=== PATIENT | male | born 1955 | race Caucasian/White ===

== ENCOUNTER → 2017-01-02 | Outpatient (CLI) | payer BC ==
[~2017-01-02] MED LIST: MULT-506 PO
--- NOTE | 2017-01-02 09:55 | DIAGNOSTIC IMAGING REPORT ---
RIGHT KNEE 1 OR 2 VIEWS ROUTINE CLINICAL HISTORY: Right knee pain COMPARISON: None. DISCUSSION: No acute fractures are visualized. There are osteoarthritic changes present with medial joint compartment narrowing. There are tiny dorsal patellar spurs. There is no evidence for soft tissue swelling. IMPRESSION: Moderate osteoarthritic change. No acute fractures. Electronically signed by: Manav Bill M.D. 01/02/2017 9:53 AM Dictated Date/Time: 01/02/2017 9:53 AM
--- NOTE | 2017-01-02 09:56 | DIAGNOSTIC IMAGING REPORT ---
LEFT KNEE 1 OR 2 VIEWS ROUTINE CLINICAL HISTORY: Left knee pain COMPARISON: None. DISCUSSION: There are minor osteoarthritic changes present. There is a small dorsal patellar spur. No acute fractures are visualized. There are no erosive or destructive changes. There is a small bone island within the proximal tibia. There is no evidence for soft tissue swelling. IMPRESSION: Mild degenerative change. No evidence of fracture. Electronically signed by: Manav Bill M.D. 01/02/2017 9:54 AM Dictated Date/Time: 01/02/2017 9:54 AM
--- NOTE | 2017-01-02 10:00 | DIAGNOSTIC IMAGING REPORT ---
SINGLE VIEW PELVIS; 2 VIEWS RIGHT HIP; 2 VIEWS LEFT HIP CLINICAL HISTORY: Bilateral hip pain. FINDINGS: An AP pelvic radiograph with AP and frog-leg views of the right hip as well as AP and frog-leg views of the left hip are obtained. No prior studies are available for comparison at the time of dictation. The skeletal structures appear osteopenic. There is no evidence of fracture. Mild arthritic change and joint space narrowing is seen in both hips. Small enthesophytes arise from the anterior superior iliac spine bilaterally. The sacroiliac joints are normal in appearance. Lumbosacral spondylosis is partially imaged. The overlying soft tissues tissues are within normal limits. There is a nonobstructed abdominal bowel gas pattern. Numerous pelvic phleboliths are identified. IMPRESSION: Mild degenerative change is present in the hips. No acute bony abnormality is seen. Electronically signed by: Haseeb Bearden M.D. 01/02/2017 9:59 AM Dictated Date/Time: 01/02/2017 9:57 AM
== END | disposition home or self-care (01) ==
LOC: C.RAD 09:16
PROVIDERS: ATTEND Physician Assistant
DX: M25.561 Pain in right knee (principal); M25.562 Pain in left knee; M25.551 Pain in right hip; M25.552 Pain in left hip

== ENCOUNTER → 2017-01-02 | Outpatient (CLI) | payer BC ==
[2017-01-02 12:54] LABS: BLOOD UREA NITROGEN 16 mg/dl (7-18); BUN/CREATININE RATIO 15.5 (10-20); CALCIUM 9.2 mg/dl (8.5-10.1); CARBON DIOXIDE 28 mmol/L (21-32); CHLORIDE 107 mmol/L (98-107); CHOLESTEROL 196 mg/dl (0-200); GLUCOSE 97 mg/dl (70-99); POTASSIUM 3.6 mmol/L (3.5-5.1); SODIUM 142 mmol/L (136-145)
[2017-01-02 12:58] LABS: CHOLESTEROL/HDL RATIO 5.2; HDL CHOLESTEROL 38 mg/dl; LDL CHOLESTEROL CALCULATED 103 mg/dl; TRIGLYCERIDES 277 mg/dl (0-150); VERY LOW DENSITY LIPOPROT CALC 55 mg/dl
[2017-01-02 13:28] LABS: ESTIMATED AVERAGE GLUCOSE 131 mg/dl; HA1C FLAG Normal (Normal)
== END | disposition home or self-care (01) ==
LOC: C.LABPBG 07:45
PROVIDERS: ATTEND Physician Assistant
DX: I10 Essential (primary) hypertension (principal)

== ENCOUNTER → 2017-07-15 | Outpatient (CLI) | payer BC ==
[2017-07-15 12:24] LABS: BLOOD UREA NITROGEN 28 mg/dl (7-18); BUN/CREATININE RATIO 19.7 (10-20); CALCIUM 9.9 mg/dl (8.5-10.1); CARBON DIOXIDE 22 mmol/L (21-32); CHLORIDE 105 mmol/L (98-107); CHOLESTEROL 243 mg/dl (0-200); GLUCOSE 142 mg/dl (70-99); SODIUM 137 mmol/L (136-145)
[2017-07-15 12:26] LABS: CHOLESTEROL/HDL RATIO 8.7; HDL CHOLESTEROL 28 mg/dl; TRIGLYCERIDES 478 mg/dl (0-150)
== END ==
LOC: C.LABPBG 09:40
PROVIDERS: ATTEND Physician Assistant
DX: Z00.00 Encounter for general adult medical examination without abnormal findings (principal); Z13.1 Encounter for screening for diabetes mellitus; Z11.59 Encounter for screening for other viral diseases; E78.1 Pure hyperglyceridemia

== ENCOUNTER 2022-12-08 10:34 | Observation (INO) ==
[2022-12-08] MEDS ORDERED: METOPROLOL TARTRATE 1 MG/ML VIAL IV STA ×2 (10:55→14:35)
--- NOTE | 2022-12-08 10:55 | Emergency Department Note ---
Impression & Plan SVT (supraventricular tachycardia), Chest pain, Elevated troponin ED Provider Note NAME: CHRISTINE RITTER AGE: 67 SEX: M : 1955 ARRIVES VIA: Walk-In INFORMANT: Patient ED PROVIDER(S): Tee Cordero DO CHIEF COMPLAINT: chest pain HPI: Patient is a 67-year-old male who presents to the ER for chest tightness going up to his bilateral jaw associated with some shortness of breath and feeling his heart racing. This has been going on since this past Thursday. He is getting it about 4-5 times a day if not more. Denies any belly pain, nausea, vomiting, or diarrhea. No dysuria, urgency, or frequency. No other exacerbating or remitting factors. He does not have a primary care doctor. He has not seen anybody for over 5 years. PAST MEDICAL HISTORY:See Below PAST SURGICAL HISTORY:See Below FAMILY HISTORY:See Below SOCIAL HISTORY:See Below HOME MEDICATIONS:See Below ALLERGIES:See Below VITALS:See Below PHYSICAL EXAMINATION: GENERAL: Sitting up in bed, alert, well appearing, well nourished, no distress, non-toxic EYE EXAM: normal conjunctiva. OROPHARYNX: no exudate, no erythema, lips, buccal mucosa, and tongue normal and mucous membranes are moist NECK: supple, no nuchal rigidity, no adenopathy, non-tender LUNGS: Clear to auscultation. Normal chest wall mechanics HEART: no murmurs, S1 normal and S2 normal ABDOMEN: abdomen soft, non-tender, normo-active bowel sounds, no masses, no re bound or guarding. UPPER EXTREMITIES: upper extremities are grossly normal. LOWER EXTREMITIES: No pitting edema. Calves are equal bilateral NEURO EXAM: Normal sensorium, cranial nerves II-XII grossly intact, normal speech, no gross weakness of arms, no gross weakness of legs. MEDICAL DECISION MAKING: Patient is a 67-year-old male who presents the ER for feeling his heart race associate with chest pain and bilateral neck pain. IV was established blood was obtained. Labs show no significant leukocytosis or anemia. BMP with slightly elevated calcium at 10.3. LFTs bilirubin was unremarkable. Troponin was elevated at 380. TSH and lipase were unremarkable. COVID was negative. Chest x-ray was unremarkable. EKG was consistent with SVT. He was going in and out of this on the monitor. He did break on his own. He was given IV Lopressor. This settled his rate down and stopped SVT for the time being. With the recurrent bouts of this did discuss with the hospitalist for further evaluation and management. Triage Nursing notes reviewed. Limited review of prior medical records performed Vital Signs: reviewed and remarkable for HTN and tachy Differential diagnosis: Cardiac ischemia, aortic dissection, pulmonary embolism, pneumothorax, pneumonia, pericarditis, myocarditis, esophageal rupture, GERD, cholecystitis, pancreatitis, musculoskeletal, as well as other pathologies. ER treatment provided: See below Diagnostics interpreted by me include EKG and cardiac monitoring as listed below: -Cardiac Monitoring: An order was placed for continuous cardiac monitoring. The monitor shows a rate of 160 with SVT rhythm. -ECG: SVT rate of 150 Normal axis No PVCs Septal Q waves ST depressions in V4 through V5 as well as the inferior leads QTc 464 -Laboratory studies:Interpreted by me as stated above in MDM and shown below. Imaging studies: Xrays: As interpreted by me: Chest x-ray per my read shows no focal infiltrate Per radiology suggested atelectasis versus infiltrates in the lower lobe. CTs show: none Consultation(s): Discussed with hospitalist for further evaluation treatment and management Dr. Lavell Montemayor Procedures:none Critical Care: None Past Med/Surg History Medical History HLD (hyperlipidemia) HTN (hypertension) with goal to be determined Prediabetes Surgical History No history of previous surgery Family History Other No pertinent family history Denies family history of Ovarian cancer Prostate cancer Myocardial infarction Breast cancer Colorectal cancer Social History Smoking Status: Never smoker Second Hand Exposure: No; Do You Dip or Chew Tobacco: No; Hx Alcohol Use: No Hx Substance Use: No Preferred Language: Azeri Communication Ability: Effective Visual Impairment: No Limitations Hearing Ability: Normal Stitch Cleaner Required: No Beliefs That Will Affect Care: None marital status: Current Living Situation: Spouse current occupational status: employed Other Information That Helps Us Care for You: No Feels Safe at Home: Yes Safety Concerns: Feels Safe At This Time Dental Care, Regularly: Yes Seatbelt Use: always Assistive Devices: None Allergies Allergies Allergy/AdvReac Type Severity Reaction Status Date / Time No Known Allergies Allergy Unverified 07/28/19 09:04 Home Meds Previous Rx's Medication Instructions Recorded atorvastatin 20 mg tablet 20 mg PO DAILY #90 tabs 06/01/19 lisinopril 40 mg tablet 40 mg PO DAILY #90 tabs 04/23/20 metoprolol tartrate 25 mg tablet 25 mg PO BID #180 tabs 06/06/21 Results & Data (ED) Vital Signs Vital Signs - 24 hr 12/08/22 10:38 12/08/22 11:06 12/08/22 11:15 Temperature 37.0 C Temperature Source Temporal Artery Scan Pulse Rate 152 H 86 Pulse Rate [Apical] 72 Pulse Rhythm [Apical] Regular Respiratory Rate 20 18 Respiratory Effort / Characteristics Non-Labored Non-Labored Spontaneous Respiratory Depth Normal Normal Respiratory Pattern Regular Blood Pressure 185/111 H 164/114 H Blood Pressure [Right Arm] 164/114 H Blood Pressure Mean 135 Blood Pressure Mean [Right Arm] 130 Blood Pressure Position Sitting Blood Pressure Position [Right Arm] Lying Pulse Oximetry 97 93 Oxygen Delivery Method Room Air Room Air Sepsis Recent Fever Within 48 Hours No Sepsis New/Unexplained Change in Mental Status No Sepsis Action Taken by Nursing No Action Required 12/08/22 11:15 12/08/22 11:57 12/08/22 12:24 Temperature Temperature Source Pulse Rate 72 Pulse Rate [Apical] 70 Pulse Rhythm [Apical] Regular Respiratory Rate 18 Respiratory Effort / Characteristics Non-Labored Spontaneous Respiratory Depth Normal Respiratory Pattern Regular Blood Pressure Blood Pressure [Right Arm] 146/102 H Blood Pressure Mean Blood Pressure Mean [Right Arm] 116 Blood Pressure Position Blood Pressure Position [Right Arm] Lying Pulse Oximetry 93 97 Oxygen Delivery Method Room Air Room Air Sepsis Recent Fever Within 48 Hours Sepsis New/Unexplained Change in Mental Status Sepsis Action Taken by Nursing Laboratory Data 12/08/22 10:50 12/08/22 10:50 Lab Results 12/08/22 12/08/22 12/08/22 Range/Units 10:50 10:50 10:50 WBC 7.75 (4.8-10.8) K/ul RBC 4.66 L (4.70-6.10) M/uL Hgb 14.1 (14.0-18.0) g/dl Hct 41.3 L (42.0-52.0) % MCV 88.6 (80.0-100.0) fL MCH 30.3 (25.0-34.0) pg MCHC 34.1 (32.0-36.0) g/dL RDW Std Deviation 46.5 H (36.4-46.3) fL RDW Coeff of Rachelle 14.4 (11.5-14.5) % Plt Count 260 (130-400) K/uL MPV 9.2 L (9.4-12.4) fL Immature Gran % (Auto) 0.1 % Neut % (Auto) 58.1 % Lymph % (Auto) 32.5 % [place] % (Auto) 8.1 % Eos % (Auto) 0.9 % Baso % (Auto) 0.3 % Neut # (Auto) 4.50 (1.40-6.50) K/uL Lymph # (Auto) 2.52 (1.2-3.4) K/uL [place] # (Auto) 0.63 H (0.11-0.59) K/uL Eos # (Auto) 0.07 (0-0.50) K/uL Baso # (Auto) 0.02 (0-0.2) K/uL Immature Gran # (Auto) 0.01 (0.01-0.20) K/uL Sodium 139 (136-145) mmol/L Potassium 3.6 (3.5-5.1) mmol/L Chloride 107 (98-107) mmol/L Carbon Dioxide 24 (21-32) mmol/L Anion Gap 8 (3-11) BUN 20 (6-23) mg/dl Creatinine 1.36 (0.6-1.4) mg/dl Est Cr Clr Drug Dosing 60.9 ml/min Est GFR ( Amer) 62.0 ml/min Est GFR (Non-Af Amer) 53.5 ml/min BUN/Creatinine Ratio 14.7 (10-20) Glucose 103 H (70-99(Fasting)) mg/dl Calcium 10.3 H (8.5-10.1) mg/dl Magnesium 1.9 Cancelled (1.7-2.4) mg/dl Total Bilirubin 0.5 (0.2-1.0) mg/dl AST 30 (13-39) U/L ALT 21 (7-52) U/L Alkaline Phosphatase 51 (34-104) U/L Troponin I High Sens 372.2 H* (0-20) pg/ml Total Protein 8.2 (6.0-8.3) gm/dl Albumin 4.5 (3.4-5.0) gm/dl Globulin 3.7 (2.5-4.0) gm/dl Albumin/Globulin Ratio 1.2 (0.9-2) Lipase 31 (11-82) U/L TSH (0.300-4.500) uIu/ml SARS-CoV-2, RNA, NAAT (NEGATIVE) 12/08/22 12/08/22 Range/Units 10:50 11:13 WBC (4.8-10.8) K/ul RBC (4.70-6.10) M/uL Hgb (14.0-18.0) g/dl Hct (42.0-52.0) % MCV (80.0-100.0) fL MCH (25.0-34.0) pg MCHC (32.0-36.0) g/dL RDW Std Deviation (36.4-46.3) fL RDW Coeff of Rachelle (11.5-14.5) % Plt Count (130-400) K/uL MPV (9.4-12.4) fL Immature Gran % (Auto) % Neut % (Auto) % Lymph % (Auto) % [place] % (Auto) % Eos % (Auto) % Baso % (Auto) % Neut # (Auto) (1.40-6.50) K/uL Lymph # (Auto) (1.2-3.4) K/uL [place] # (Auto) (0.11-0.59) K/uL Eos # (Auto) (0-0.50) K/uL Baso # (Auto) (0-0.2) K/uL Immature Gran # (Auto) (0.01-0.20) K/uL Sodium (136-145) mmol/L Potassium (3.5-5.1) mmol/L Chloride (98-107) mmol/L Carbon Dioxide (21-32) mmol/L Anion Gap (3-11) BUN (6-23) mg/dl Creatinine (0.6-1.4) mg/dl Est Cr Clr Drug Dosing ml/min Est GFR ( Amer) ml/min Est GFR (Non-Af Amer) ml/min BUN/Creatinine Ratio (10-20) Glucose (70-99(Fasting)) mg/dl Calcium (8.5-10.1) mg/dl Magnesium (1.7-2.4) mg/dl Total Bilirubin (0.2-1.0) mg/dl AST (13-39) U/L ALT (7-52) U/L Alkaline Phosphatase (34-104) U/L Troponin I High Sens (0-20) pg/ml Total Protein (6.0-8.3) gm/dl Albumin (3.4-5.0) gm/dl Globulin (2.5-4.0) gm/dl Albumin/Globulin Ratio (0.9-2) Lipase (11-82) U/L TSH 3.157 (0.300-4.500) uIu/ml SARS-CoV-2, RNA, NAAT NEGATIVE (NEGATIVE) Administered Medications Discontinued Medications Aspirin (Aspirin Chew 324 Mg) 324 mg PO NOW STA Stop: 12/08/22 12:33 Last Admin: 12/08/22 12:44 Dose: 324 mg Documented By: DAREN Metoprolol Tartrate (Metoprolol Tartrate 1 Mg/Ml Vial) 5 mg IV NOW STA Stop: 12/08/22 10:56 Last Admin: 12/08/22 11:06 Dose: 5 mg Documented By: DAREN Imaging Data Radiologist's Impression: Chest X-Ray 12/08/22 10:46 XR chest 1V portable CLINICAL HISTORY: Chest pain, nonspecific TECHNIQUE: Single frontal radiograph of the chest was obtained. Comparison: None available at the time of this dictation. FINDINGS: No lines and tubes are seen. Cardiomegaly is noted. Faint left lower lung airspace opacities are suggested. No evidence of pleural effusion or pneumothorax. IMPRESSION: Faint left lower lung airspace opacities are suggested which may represent atelectasis, aspiration, and/or pneumonia. If there is clinical concern, lateral radiograph or CT can be performed. ACT 112: Negative or not required by law. Electronically signed by: Juarez Corley M.D. 12/08/2022 11:05 AM Discharge Plan Visit Data Chief Complaint: Chest Pain Stated Complaint: TIGHTNESS IN CHEST, HEADACHE ED Provider: Tee Cordero Discharge Problem: SVT (supraventricular tachycardia), Chest pain, Elevated troponin Patient Disposition: Admitted As Inpatient Discharge Instructions Interventions: ED Discharge Assessment Last Done: 12/08/22 14:23
--- NOTE | 2022-12-08 11:06 | XRay Report ---
XR chest 1V portable CLINICAL HISTORY: Chest pain, nonspecific TECHNIQUE: Single frontal radiograph of the chest was obtained. Comparison: None available at the time of this dictation. FINDINGS: No lines and tubes are seen. Cardiomegaly is noted. Faint left lower lung airspace opacities are sugg ested. No evidence of pleural effusion or pneumothorax. IMPRESSION: Faint left lower lung airspace opacities are suggested which may represent atelectasis, aspiration, a nd/or pneumonia. If there is clinical concern, lateral radiograph or CT can be performed. ACT 112: Negative or not required by law. Electronically signed by: Juarez Corley M.D. 12/08/2022 11:05 AM
[2022-12-08 11:48] LABS: Basophils # (auto) 0.02 K/uL (0-0.2); Basophils % (auto) 0.3 %; Eosinophils # (auto) 0.07 K/uL (0-0.50); Eosinophils % (auto) 0.9 %; Hematocrit (blood only) 41.3 % (42.0-52.0); Hemoglobin 14.1 g/dl (14.0-18.0); Immature Granulocytes # (auto) 0.01 K/uL (0.01-0.20); Immature Granulocytes % (auto) 0.1 %; Lymphocytes # (auto) 2.52 K/uL (1.2-3.4); Lymphocytes % (auto) 32.5 %; Mean Corpuscular Hemoglobin 30.3 pg (25.0-34.0); Mean Corpuscular Hgb Conc 34.1 g/dL (32.0-36.0); Mean Corpuscular Volume 88.6 fL (80.0-100.0); Mean Platelet Volume 9.2 fL (9.4-12.4); Monocytes # (auto) 0.63 K/uL (0.11-0.59); Monocytes % (auto) 8.1 %; Neutrophils % (auto) 58.1 %; Platelet Count 260 K/uL (130-400); RDW Coefficient of Variation 14.4 % (11.5-14.5); RDW Standard Deviation 46.5 fL (36.4-46.3); Red Blood Count 4.66 M/uL (4.70-6.10); White Blood Count 7.75 K/ul (4.8-10.8)
[2022-12-08 11:54] LABS: Albumin Globulin Ratio 1.2 (0.9-2); Albumin Level 4.5 gm/dl (3.4-5.0); BUN Creatinine Ratio 14.7 (10-20); Bilirubin,Total 0.5 mg/dl (0.2-1.0); Calcium 10.3 mg/dl (8.5-10.1); Creatinine Clr Calc Pharmacy 60.9 ml/min; Est GFR (Non-African American) 53.5 ml/min; Globulin 3.7 gm/dl (2.5-4.0); Potassium 3.6 mmol/L (3.5-5.1); Total Protein 8.2 gm/dl (6.0-8.3)
[2022-12-08 12:20] LABS: Troponin I High Sensitivity 372.2 pg/ml (0-20)
--- NOTE | 2022-12-08 12:27 | History & Physical Report ---
Date of Service December 08, 2022 Assessment & Plan (1) Chest pain: Plan: recurrent episodes of CP/radiation to jaw/heart racing/SOB since last Thursday, 4- 5x daily. Currently chest pain free and in NSR on monitor EKG w/ SVT on admit, spontaneously converted, given metoporolol 5mg IV Troponin 372, asa 324mg x 1 now in ER ordered, will continue ASA 81mg daily for AM Obs telemetry Troponin x 2 Check Mag/TSH given SVT ECHO to be completed given troponin elevation (?overload from SVT, check BNP) Will continue metoprolol 25mg BID for now, BP elevated Cards consulted Nitro prn Supplemental O2 as needed Pain control/antiemetics prn Labs in AM along with A1c and lipid panel given prior on statin and pre-DM w/ A1c 6.5 (glucose 103 today) (2) SVT (supraventricular tachycardia): Plan: on admit, now in NSR metoprolol check mag monitor on telemetry (3) Dyslipidemia: Plan: porior on atorvastatin 20mg check lipid panel in AM, dose TBD pending above (4) Hypertension: Plan: previously on lisinopril 40mg, metoprolol 25m bid BP elevated 146/102, additional dose metoprolol IV x 1 NOW, monitor response Orders for metoprolol 25mg BID to begin tonight, will hold off lisinopril until re-eval kidney function given Cr 1.36 on admit Can make hydralazine available prn (5) Prediabetes: Plan: prior A1c 6.5, repeat for AM Will check BSG AC/HS, add on ISS pending repeat values Plan obs tele, trend trop/check ECHO, cards consulted will need set back up with Dr Ross for PCP at discharge given hasn't been seen since 2019 History of Present Illness Chief Complaint: chest pain Primary Care Provider: Lili Ross, 67yo male with PMHx HTn, HLD, pre-DM presented with chest tightness and radiation to b/l jaw with shortness of breath and heart racing sensation since this past Thursday, about 4-5 times a day (if not possibly more). Prior home meds atorvastatin 20mg, lisinopril 40mg, metoprolol tartrate 25mg BID but do not see any recent fill history. Reportedly not seen primary care almost 5 years. Patient reports since about last Thursday he has been having at least 4-5 episodes daily of racing sensation in his chest with chest pain radiation to jaws and associated lightheaded/dizziness sensation which lasts a couple of seconds and then goes away. Nothing brought it on or made worse/better. Had been checking BP/pulse w/ home machine and reports HRs up to 150-160s at times. No recent illness/cough/sputum production or fevers at home. He reports he used to be on medication for blood pressure but just hasn't been to primary care. Good experience w/ Dr Ross in the past and would like to f/u with her at d/c. Father from brain aneurysm/stroke in his 60/70s, mother in her 90s. No abdominal pain, nausea or vomiting. No lower back pain. Does have some edema in LE but calves non-tender to palpation. No pleuritic pain reported. 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 No drinking history. In ER found to be in SVT w/ rates in 150bpm, spontaneously converted and was given metoprolol 5mg IV x 1. ST/T wave abn, consider inferior ischemia. CXR w/ faint left lower lung airspace opacities are suggested which may represent atelectasis, aspiration, and/or pneumonia. WBC, no left shift. COVID 19 testing negative. Na/K within normal limits. Calcium 10.3. Troponin elevated to 372.2 and will trend. NOT currently having any chest discomfort. Allergies Allergy/AdvReac Type Severity Reaction Status Date / Time No Known Allergies Allergy Unverified 07/28/19 09:04 Past Med/Surg History Medical History HLD (hyperlipidemia) HTN (hypertension) with goal to be determined Prediabetes Surgical History No history of previous surgery Family History Other No pertinent family history Denies family history of Ovarian cancer Prostate cancer Myocardial infarction Breast cancer Colorectal cancer Social History Smoking Status: Never smoker Second Hand Exposure: No; Do You Dip or Chew Tobacco: No; Hx Alcohol Use: No Hx Substance Use: No Preferred Language: Icelandic Communication Ability: Effective Visual Impairment: No Limitations Hearing Ability: Normal 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 Beliefs That Will Affect Care: None marital status: Current Living Situation: Spouse current occupational status: employed Other Information That Helps Us Care for You: No Feels Safe at Home: Yes Safety Concerns: Feels Safe At This Time Dental Care, Regularly: Yes Seatbelt Use: always Assistive Devices: None Review of Systems Review of Systems: All systems reviewed & are unremarkable except as noted in HPI & below Physical Exam Physical Exam: General: WD/WN obese male sitting up in bed, at bedside, NAD and getting his aspirin currently HEENT: head normocephalic, atraumatic, mmm, trachea midline without deviation Resp: CTA, bibasilar crackles, no wheezing, on room air CV: regular rate/rhythm (rates 70-80s), +murmur, 1+ b/l LE edema, pulses palpable, calves nontender to palpation GI: +BS, obese, slightly distended but soft/NT : no elmore MSK/Neuro: no focal deficit, no slurred speech, CN intact grossly Psych: AOx3, pleasant and cooperative Skin: warm, dry Results & Data Results & Data ([facility]) Vital Signs (Past 12 Hours) Vital Signs Temp Pulse Pulse Resp BP BP Pulse Ox 12/08/22 11:57 70 18 146/102 H 97 12/08/22 11:15 93 12/08/22 11:15 72 18 164/114 H 93 12/08/22 11:06 86 164/114 H 12/08/22 10:38 37.0 C 152 H 20 185/111 H 97 O2 Del Method 12/08/22 11:57 Room Air 12/08/22 11:15 Room Air 12/08/22 11:15 Room Air 12/08/22 11:06 12/08/22 10:38 Room Air Laboratory Results 12/08/22 12/08/22 12/08/22 Range/Units 11:13 10:50 10:50 WBC 7.75 (4.8-10.8) K/ul RBC 4.66 L (4.70-6.10) M/uL Hgb 14.1 (14.0-18.0) g/dl Hct 41.3 L (42.0-52.0) % MCV 88.6 (80.0-100.0) fL MCH 30.3 (25.0-34.0) pg MCHC 34.1 (32.0-36.0) g/dL RDW Std Deviation 46.5 H (36.4-46.3) fL RDW Coeff of Rachelle 14.4 (11.5-14.5) % Plt Count 260 (130-400) K/uL MPV 9.2 L (9.4-12.4) fL Immature Gran % (Auto) 0.1 % Neut % (Auto) 58.1 % Lymph % (Auto) 32.5 % [place] % (Auto) 8.1 % Eos % (Auto) 0.9 % Baso % (Auto) 0.3 % Neut # (Auto) 4.50 (1.40-6.50) K/uL Lymph # (Auto) 2.52 (1.2-3.4) K/uL [place] # (Auto) 0.63 H (0.11-0.59) K/uL Eos # (Auto) 0.07 (0-0.50) K/uL Baso # (Auto) 0.02 (0-0.2) K/uL Immature Gran # (Auto) 0.01 (0.01-0.20) K/uL Sodium 139 (136-145) mmol/L Potassium 3.6 (3.5-5.1) mmol/L Chloride 107 (98-107) mmol/L Carbon Dioxide 24 (21-32) mmol/L Anion Gap 8 (3-11) BUN 20 (6-23) mg/dl Creatinine 1.36 (0.6-1.4) mg/dl Est Cr Clr Drug Dosing 60.9 ml/min Est GFR ( Amer) 62.0 ml/min Est GFR (Non-Af Amer) 53.5 ml/min BUN/Creatinine Ratio 14.7 (10-20) Glucose 103 H (70-99(Fasting)) mg/dl Calcium 10.3 H (8.5-10.1) mg/dl Total Bilirubin 0.5 (0.2-1.0) mg/dl AST 30 (13-39) U/L ALT 21 (7-52) U/L Alkaline Phosphatase 51 (34-104) U/L Troponin I High Sens 372.2 H* (0-20) pg/ml Total Protein 8.2 (6.0-8.3) gm/dl Albumin 4.5 (3.4-5.0) gm/dl Globulin 3.7 (2.5-4.0) gm/dl Albumin/Globulin Ratio 1.2 (0.9-2) Lipase 31 (11-82) U/L SARS-CoV-2, RNA, NAAT NEGATIVE (NEGATIVE) Diagnostic Findings Chest X-Ray 12/08/22 10:46 XR chest 1V portable CLINICAL HISTORY: Chest pain, nonspecific TECHNIQUE: Single frontal radiograph of the chest was obtained. Comparison: None available at the time of this dictation. FINDINGS: No lines and tubes are seen. Cardiomegaly is noted. Faint left lower lung airspace opacities are suggested. No evidence of pleural effusion or pneumothorax. IMPRESSION: Faint left lower lung airspace opacities are suggested which may represent atelectasis, aspiration, and/or pneumonia. If there is clinical concern, lateral radiograph or CT can be performed. ACT 112: Negative or not required by law. Electronically signed by: Juarez Corley M.D. 12/08/2022 11:05 AM Supervising Physician Co-Signing Physician Notes I personally saw and examined the patient. I verified all morillo points and agree with Catarina Roach PA-C with the following exceptions and/or additions: 67-year-old male presents to the ER with chest pain and palpitations. He denies any pain outside of these palpitations. No recent decrease in exercise tolerance. No associated shortness of breath, diaphoresis, nausea. No current chest pain when seen while in normal sinus rhythm. O/E Alert and orientated x3, HS RRR, no murmurs, Chest CTAB, Abdo SNT A/P SVT - Currently in NSR. Continue metoprolol tartrate 25mg PO BID. Consult cardiology Elevated troponin - suspect some degree of underlying CAD but ACS not suspected as resolved with termination of SVT and no chest pain outside of these episodes PG Care Time/CCT Total # of Minutes Spent Total Time Spent with Patient: Total time spent is greater than 50% in coordination of care (as documented) at patient's floor/unit and/or counseling patient: Coding Level of Care Code 14516 INT INP/OBS CARE 375MIN Diagnoses Chest pain R07.9 SVT (supraventricular tachycardia) I47.1 Dyslipidemia E78.5 Hypertension I10 Prediabetes R73.03
[2022-12-08] MEDS ORDERED: ASPIRIN CHEW 324 MG PO STA (12:32)
--- NOTE | 2022-12-08 12:49 | Electrocardiogram Report ---
Test Reason : Blood Pressure : / mmHG Vent. Rate : 150 BPM Atrial Rate : 150 BPM P-R Int : 000 ms QRS Dur : 098 ms QT Int : 294 ms P-R-T Axes : 000 019 262 degrees QTc Int : 464 ms Supraventricular tachycardia Septal infarct , age undetermined Abnormal ECG No previous ECGs available Confirmed by Rene Day ([id number]) on 12/08/2022 12:49:10 PM Referred By: Confirmed By:Rene Day
[2022-12-08 13:15] LABS: Magnesium 1.9 mg/dl (1.7-2.4)
[2022-12-08] MEDS ORDERED: hydrALAZINE HCL 20 MG/ML VIAL IV PRN (14:35)
[2022-12-08] MEDS ORDERED: NITROGLYCERIN SL 0.4 MG/TAB TAB SL PRN (14:35)
[2022-12-08] MEDS ORDERED: ACETAMINOPHEN 325 MG TAB PO PRN (14:35)
[2022-12-08] MEDS ORDERED: ONDANSETRON INJ 2 MG/ML 2 ML VIAL IV PRN (14:35)
[2022-12-08] MEDS ORDERED: MoRPHine SULFATE 2 MG/ML CARP IV PRN (14:35)
--- NOTE | 2022-12-08 15:01 | Cardiology Consultation ---
Date of Consultation December 08, 2022 Assessment & Plan (1) SVT (supraventricular tachycardia): -suspect he has asymptomatic paroxysmal SVT. -curious that this has never been noted previously in this patient. -consider increasing metoprolol tartrate. -will discuss with electrophysiology team. (2) Elevated troponin: -suspect this is related to his paroxysmal SVT in the face of left ventricular hypertrophy. -however, his description of chest discomfort should be investigated further. -would follow serial troponin levels. -will decide on further testing tomorrow. (3) Hypertension: -as above, may be reasonable to increase metoprolol tartrate. History of Present Illness Attending Physician: Lavell Montemayor MD History of Present Illness Mr. Bridges a 67-year-old male admitted earlier today with intermittent chest pain, shortness of breath, and palpitations. This consultation was ordered to assist in his cardiac management. The patient was in his usual state of health until last or Thursday when he began noticing intermittent episodes of fatigue, shortness of breath, palpitations, and a squeezing-type chest discomfort radiating to the jaw. He would experience 4 or 5 episodes as described every day. The episodes typically last seconds up to minutes. He has never experienced this symptom complex previously. He is vigorous on a daily basis and has never experienced exertional angina pectoris or limiting dyspnea. He further denies syncope, presyncope, PND, orthopnea, lower extremity edema, and claudication. He has never known of a cardiac event. He has never had a cardiac catheterization. Past medical and surgical history 1. Hypertension 2. Hypercholesterolemia 3. Hyperglycemia 4. DJD Social history and lives with his No tobacco alcohol Family history Father at 70 from a brain aneurysm Mother in her 90s of old age. Review of systems A 10 review systems was undertaken and negative except for that described above. Allergies Allergy/AdvReac Type Severity Reaction Status Date / Time No Known Allergies Allergy Unverified 07/28/19 09:04 Home Medications Medication Instructions Recorded Confirmed Type atorvastatin 20 mg tablet 20 mg PO DAILY #90 tabs 06/01/19 07/28/19 Rx lisinopril 40 mg tablet 40 mg PO DAILY #90 tabs 04/23/20 Rx metoprolol tartrate 25 mg tablet 25 mg PO BID #180 tabs 06/06/21 Rx Patient History Medical History HLD (hyperlipidemia) HTN (hypertension) with goal to be determined Prediabetes Surgical History No history of previous surgery Family History Other No pertinent family history Denies family history of Ovarian cancer Prostate cancer Myocardial infarction Breast cancer Colorectal cancer Social History Smoking Status: Never smoker Second Hand Exposure: No; Hx Alcohol Use: No Hx Substance Use: No Preferred Language: Khmer Communication Ability: Effective Visual Impairment: No Limitations Hearing Ability: Normal Dock Grader Required: No marital status: Current Living Situation: Spouse current occupational status: employed Feels Safe at Home: Yes Dental Care, Regularly: Yes Seatbelt Use: always Results & Data ([facility]) Vital Signs (Past 12 Hours) Vital Signs Temp Pulse Pulse Resp BP BP Pulse Ox 12/08/22 14:40 36.7 C 68 19 161/97 H 97 12/08/22 12:24 72 12/08/22 11:57 70 18 146/102 H 97 12/08/22 11:15 93 12/08/22 11:15 72 18 164/114 H 93 12/08/22 11:06 86 164/114 H 12/08/22 10:38 37.0 C 152 H 20 185/111 H 97 O2 Del Method 12/08/22 14:40 Room Air 12/08/22 12:24 12/08/22 11:57 Room Air 12/08/22 11:15 Room Air 12/08/22 11:15 Room Air 12/08/22 11:06 12/08/22 10:38 Room Air Laboratory Results CBC notes hemoglobin 14.1, hematocrit 41.3, white count 7.75, platelet count [id number]. Electrolytes note a sodium of 139, potassium 3.6, chloride 107, bicarb 24, BUN 20, creatinine 1.36, glucose of 103. High sensitivity troponin is 372. TSH level is 3.157. Magnesium is normal at 1.9. BNP is elevated 243. Diagnostic Findings EKG notes an SVT with an old anteroseptal myocardial infarction pattern and an inferior ST T-wave abnormality. Echocardiogram notes normal left ventricular systolic function with mild LVH and mild mitral regurgitation. Chest x-ray notes cardiomegaly but no active disease. PG Care Time/CCT Total # of Minutes Spent Total Time Spent with Patient: Total time spent is greater than 50% in coordination of care (as documented) at patient's floor/unit and/or counseling patient: Coding Level of Care Code 29962 INT INP/OBS CARE 3/75MIN Diagnoses SVT (supraventricular tachycardia) I47.1 Elevated troponin R77.8 Hypertension I10
--- NOTE | 2022-12-08 16:15 | XCELERA ---
[id number]
--- NOTE | 2022-12-08 18:20 | XRay Report ---
XR chest 1V not portable HISTORY: 67 years-old Male f/u atelectasis vs opacity/pna acute cough with shortness of breath COMPARISON: 12/08/2022 TECHNIQUE: Lateral view of the chest FINDINGS: Cardiac silhouette is mildly enlarged. No pneumothorax, pleural effusion, airspace consolidation or p ulmonary edema identified. Degenerative changes of the shoulders and spine. IMPRESSION: No acute process. ACT 112: Negative or not required by law. The above report was generated using voice recognition software. It may contain grammatical, syntax o r spelling errors. Electronically signed by: Tim Walls M.D. 12/08/2022 6:19 PM
[2022-12-08] MEDS: METOPROLOL TARTRATE 25 MG TAB PO SCH (20:09)
[2022-12-08] MEDS ORDERED: Flu Vaccine-High Dose (Fluzone-HD) PF 65+ 0.7mL SYR IM ONE (21:30)
[2022-12-09 06:00] LABS: Hematocrit (blood only) 39.7 % (42.0-52.0); Hemoglobin 13.9 g/dl (14.0-18.0); Mean Corpuscular Hemoglobin 30.4 pg (25.0-34.0); Mean Corpuscular Volume 86.9 fL (80.0-100.0); Platelet Count 243 K/uL (130-400); RDW Coefficient of Variation 14.3 % (11.5-14.5); RDW Standard Deviation 45.1 fL (36.4-46.3); Red Blood Count 4.57 M/uL (4.70-6.10); White Blood Count 7.09 K/ul (4.8-10.8)
[2022-12-09 06:17] LABS: Albumin Globulin Ratio 1.2 (0.9-2); Albumin Level 4.2 gm/dl (3.4-5.0); BUN Creatinine Ratio 16.7 (10-20); Bilirubin,Total 0.6 mg/dl (0.2-1.0); Calcium 9.3 mg/dl (8.5-10.1); Chol HDL Ratio 9.5 (0-5); Creatinine Clr Calc Pharmacy 61.2 ml/min; Est GFR (African American) 64.2 ml/min; Est GFR (Non-African American) 55.4 ml/min; Globulin 3.4 gm/dl (2.5-4.0); Magnesium 1.9 mg/dl (1.7-2.4); Potassium 3.7 mmol/L (3.5-5.1); Total Protein 7.6 gm/dl (6.0-8.3)
[2022-12-09 06:44] LABS: Vitamin B12 782 pg/ml (180-914)
[2022-12-09 06:47] LABS: Vitamin D, 25 Hydrox 85.7 ng/ml (30-100)
--- NOTE | 2022-12-09 07:42 | Hospitalist Progress Note ---
Date of Service December 09, 2022 Assessment & Plan (1) Chest pain: Plan: recurrent episodes of CP/radiation to jaw/heart racing/SOB since last Thursday, 4- 5x daily. ECHO w/ normal LV systolic function. No regional wma. Mild cLVH. EF 55-60% Troponin 372.2 on admit --> 720--> 863--> 605. Demand ischemia from elevated HR/SVT however would have suspected trending down sooner given no further occurrence of SVT/AVNRT as below Remains NSR on monitor since initiation of metoprolol and will continue ASA 81mg daily added and continued for now Patient w/ rising trop despite no further occupance of elevated HR. Did drop to 604 today from 800s -- BPs elevated but not symptomatic from such. Started lisinopril 10mg daily for BP, hydralazine available prn Do suspect has degree of underlying CAD and discussions this morning w/ Dr Sierra (chest pain w/ elevated rates and elevated lipid panel w/ symptoms likely some degree suspected) and Dr Day to see about undergoing cardiac catheterization vs dobutamine stress--> planning on cath NPO since midnight +NS@80cc/hr in meantime Needing statin therapy given lipid panel -- started atorvastatin 40mg and can increased based on additional testing. A1c pre-DM, counseling had and may benefit from adding daily metformin 500mg for risk, again can see about cath results/aggressiveness Further recs per results of cath Also benefit from ablation for below Monitor labs on repeat/continue monitoring on telemetry (2) SVT (supraventricular tachycardia): Plan: on admit, now in NSR -- discussed w/ Dr Sierra and possible AVNRT amendable to ablation but will need to have discussion w/ Dr Cervantes who could potentiall do on . No recurrence since being placed on metoprolol and continues on 25mg BID for now Per discussion w/ Dr Sierra this morning, possible AVNRT and benefit from EP study w/ Dr Cervantes potentially . Cath as above first for suspected underlying CAD Continues on telemetry (3) Dyslipidemia: Plan: prior on atorvastatin 20mg --> placed on lipitor 40mg for now given lipid panel w/ TRG 325/Chol 276, LDL 182, HDL 29 Cath as above (4) Hypertension: Plan: previously on lisinopril 40mg, metoprolol 25m bid Metoprolol as above Added lisinopril 10mg for this morning for BP 148/90 and monitor response -- likely needing increased dosing but will monitor as had been off for some time Hydralazine available prn (5) Prediabetes: Plan: prior A1c 6.5 --> repeat 6.1 Counseled patient/weight loss -- await cath results as above. Consider low dose metformin at d/c for risk prevention BSG AC/HS checks acceptable, no need for inuslin at this time Plan NPO for cath w/ Dr Desai possible need for EP study/ablation w/ Dr Cervantes on -- continued discussions Admission and Anticipated Discharge Date Admission Date: December 08, 2022 Supervising Physician Co-Signing Physician Notes PA Supervision Note: I personally saw and examined the patient. I verified all morillo points and agree with TACO Roach with the following exceptions and/or additions: see discharge summary Subjective eval this morning, discussion undertaken w/ Dr Sierra for his "SVT" on admit, possible AVNRT and may be amenable to ablation but Dr Cervantes possibly able to perform on . Denies any recurrence of symptoms. BPs elevated yesterday, improved in evening and again elevated this morning. Just got dose of lisinopril. He is hungry. Discussed continued NPO for possible cardiac cath rather than dobutamine stress but waiting to hear back from Dr Day first. No fever/chills, chest pain, shortness of breath, abdominal pain, n/v. Questions/concerns addressed at this time. Physical Exam Physical Exam: General: WD/WN obese male sitting up in bed, at bedside, NAD and getting his aspirin currently HEENT: head normocephalic, atraumatic, mmm, trachea midline without deviation Resp: CTA, bibasilar crackles, no wheezing, on room air CV: regular rate/rhythm (rates 70-80s), +murmur, 1+ b/l LE edema, pulses palpable, calves nontender to palpation GI: +BS, obese, slightly distended but soft/NT : no elmore MSK/Neuro: no focal deficit, no slurred speech, CN intact grossly Psych: AOx3, pleasant and cooperative Skin: warm, dry Results & Data Results & Data ([facility]) Vital Signs (Past 12 Hours) Vital Signs Temp Pulse Pulse Resp BP Pulse Ox O2 Del Method 12/09/22 07:34 37.0 C 59 L 19 148/90 H 97 Room Air 12/09/22 06:21 64 12/09/22 04:12 68 19 121/82 94 Room Air 12/09/22 00:16 69 12/08/22 23:00 66 18 126/88 95 Room Air 12/08/22 20:00 37.2 C 89 18 144/100 H 99 Room Air Laboratory Results 12/09/22 12/09/22 12/09/22 Range/Units 07:11 05:42 05:42 WBC 7.09 (4.8-10.8) K/ul RBC 4.57 L (4.70-6.10) M/uL Hgb 13.9 L (14.0-18.0) g/dl Hct 39.7 L (42.0-52.0) % MCV 86.9 (80.0-100.0) fL MCH 30.4 (25.0-34.0) pg MCHC 35.0 (32.0-36.0) g/dL RDW Std Deviation 45.1 (36.4-46.3) fL RDW Coeff of Rachelle 14.3 (11.5-14.5) % Plt Count 243 (130-400) K/uL MPV 9.0 L (9.4-12.4) fL Immature Gran % (Auto) % Neut % (Auto) % Lymph % (Auto) % [place] % (Auto) % Eos % (Auto) % Baso % (Auto) % Neut # (Auto) (1.40-6.50) K/uL Lymph # (Auto) (1.2-3.4) K/uL [place] # (Auto) (0.11-0.59) K/uL Eos # (Auto) (0-0.50) K/uL Baso # (Auto) (0-0.2) K/uL Immature Gran # (Auto) (0.01-0.20) K/uL Sodium (136-145) mmol/L Potassium (3.5-5.1) mmol/L Chloride (98-107) mmol/L Carbon Dioxide (21-32) mmol/L Anion Gap (3-11) BUN (6-23) mg/dl Creatinine (0.6-1.4) mg/dl Est Cr Clr Drug Dosing ml/min Est GFR ( Amer) ml/min Est GFR (Non-Af Amer) ml/min BUN/Creatinine Ratio (10-20) Glucose (70-99(Fasting)) mg/dl POC Glucose 94 (70-99) mg/dl Estimat Average Glucose Hemoglobin A1c Calcium (8.5-10.1) mg/dl Magnesium (1.7-2.4) mg/dl Iron (35-175) mcg/dl TIBC (250-450) mcg/dl Unsaturated IBC (155-355) mcg/dl Transferrin % Sat (20-50) % Ferritin (8-388) ng/ml Total Bilirubin (0.2-1.0) mg/dl AST (13-39) U/L ALT (7-52) U/L Alkaline Phosphatase (34-104) U/L Troponin I High Sens (0-20) pg/ml B-Natriuretic Peptide (0-100) pg/ml Total Protein (6.0-8.3) gm/dl Albumin (3.4-5.0) gm/dl Globulin (2.5-4.0) gm/dl Albumin/Globulin Ratio (0.9-2) Triglycerides (0-150) mg/dl Cholesterol (0-200) mg/dl LDL Cholesterol, Calc mg/dl VLDL Cholesterol, Calc (0-30) mg/dl HDL Cholesterol mg/dl Cholesterol/HDL Ratio (0-5) Lipase (11-82) U/L Vitamin B12 782 (180-914) pg/ml 25-OH Vitamin D Total 85.7 (30-100) ng/ml Folate > 22.30 (>5.38) ng/ml TSH (0.300-4.500) uIu/ml SARS-CoV-2, RNA, NAAT (NEGATIVE) 12/09/22 12/09/22 12/08/22 Range/Units 05:42 05:42 22:34 WBC (4.8-10.8) K/ul RBC (4.70-6.10) M/uL Hgb (14.0-18.0) g/dl Hct (42.0-52.0) % MCV (80.0-100.0) fL MCH (25.0-34.0) pg MCHC (32.0-36.0) g/dL RDW Std Deviation (36.4-46.3) fL RDW Coeff of Rachelle (11.5-14.5) % Plt Count (130-400) K/uL MPV (9.4-12.4) fL Immature Gran % (Auto) % Neut % (Auto) % Lymph % (Auto) % [place] % (Auto) % Eos % (Auto) % Baso % (Auto) % Neut # (Auto) (1.40-6.50) K/uL Lymph # (Auto) (1.2-3.4) K/uL [place] # (Auto) (0.11-0.59) K/uL Eos # (Auto) (0-0.50) K/uL Baso # (Auto) (0-0.2) K/uL Immature Gran # (Auto) (0.01-0.20) K/uL Sodium 137 (136-145) mmol/L Potassium 3.7 (3.5-5.1) mmol/L Chloride 107 (98-107) mmol/L Carbon Dioxide 23 (21-32) mmol/L Anion Gap 7 (3-11) BUN 22 (6-23) mg/dl Creatinine 1.32 (0.6-1.4) mg/dl Est Cr Clr Drug Dosing 61.2 ml/min Est GFR ( Amer) 64.2 ml/min Est GFR (Non-Af Amer) 55.4 ml/min BUN/Creatinine Ratio 16.7 (10-20) Glucose 99 (70-99(Fasting)) mg/dl POC Glucose (70-99) mg/dl Estimat Average Glucose Pending Hemoglobin A1c Pending Calcium 9.3 (8.5-10.1) mg/dl Magnesium 1.9 (1.7-2.4) mg/dl Iron (35-175) mcg/dl TIBC (250-450) mcg/dl Unsaturated IBC (155-355) mcg/dl Transferrin % Sat (20-50) % Ferritin (8-388) ng/ml Total Bilirubin 0.6 (0.2-1.0) mg/dl AST 26 (13-39) U/L ALT 18 (7-52) U/L Alkaline Phosphatase 47 (34-104) U/L Troponin I High Sens 863.8 H* (0-20) pg/ml B-Natriuretic Peptide (0-100) pg/ml Total Protein 7.6 (6.0-8.3) gm/dl Albumin 4.2 (3.4-5.0) gm/dl Globulin 3.4 (2.5-4.0) gm/dl Albumin/Globulin Ratio 1.2 (0.9-2) Triglycerides 325 H (0-150) mg/dl Cholesterol 276 H (0-200) mg/dl LDL Cholesterol, Calc 182 mg/dl VLDL Cholesterol, Calc 65 H (0-30) mg/dl HDL Cholesterol 29 mg/dl Cholesterol/HDL Ratio 9.5 H (0-5) Lipase (11-82) U/L Vitamin B12 (180-914) pg/ml 25-OH Vitamin D Total (30-100) ng/ml Folate (>5.38) ng/ml TSH (0.300-4.500) uIu/ml SARS-CoV-2, RNA, NAAT (NEGATIVE) 12/08/22 12/08/22 12/08/22 Range/Units 20:26 17:00 13:13 WBC (4.8-10.8) K/ul RBC (4.70-6.10) M/uL Hgb (14.0-18.0) g/dl Hct (42.0-52.0) % MCV (80.0-100.0) fL MCH (25.0-34.0) pg MCHC (32.0-36.0) g/dL RDW Std Deviation (36.4-46.3) fL RDW Coeff of Rachelle (11.5-14.5) % Plt Count (130-400) K/uL MPV (9.4-12.4) fL Immature Gran % (Auto) % Neut % (Auto) % Lymph % (Auto) % [place] % (Auto) % Eos % (Auto) % Baso % (Auto) % Neut # (Auto) (1.40-6.50) K/uL Lymph # (Auto) (1.2-3.4) K/uL [place] # (Auto) (0.11-0.59) K/uL Eos # (Auto) (0-0.50) K/uL Baso # (Auto) (0-0.2) K/uL Immature Gran # (Auto) (0.01-0.20) K/uL Sodium (136-145) mmol/L Potassium (3.5-5.1) mmol/L Chloride (98-107) mmol/L Carbon Dioxide (21-32) mmol/L Anion Gap (3-11) BUN (6-23) mg/dl Creatinine (0.6-1.4) mg/dl Est Cr Clr Drug Dosing ml/min Est GFR ( Amer) ml/min Est GFR (Non-Af Amer) ml/min BUN/Creatinine Ratio (10-20) Glucose (70-99(Fasting)) mg/dl POC Glucose 103 H (70-99) mg/dl Estimat Average Glucose Hemoglobin A1c Calcium (8.5-10.1) mg/dl Magnesium (1.7-2.4) mg/dl Iron (35-175) mcg/dl TIBC (250-450) mcg/dl Unsaturated IBC (155-355) mcg/dl Transferrin % Sat (20-50) % Ferritin (8-388) ng/ml Total Bilirubin (0.2-1.0) mg/dl AST (13-39) U/L ALT (7-52) U/L Alkaline Phosphatase (34-104) U/L Troponin I High Sens 720.5 H* D (0-20) pg/ml B-Natriuretic Peptide 243 H (0-100) pg/ml Total Protein (6.0-8.3) gm/dl Albumin (3.4-5.0) gm/dl Globulin (2.5-4.0) gm/dl Albumin/Globulin Ratio (0.9-2) Triglycerides (0-150) mg/dl Cholesterol (0-200) mg/dl LDL Cholesterol, Calc mg/dl VLDL Cholesterol, Calc (0-30) mg/dl HDL Cholesterol mg/dl Cholesterol/HDL Ratio (0-5) Lipase (11-82) U/L Vitamin B12 (180-914) pg/ml 25-OH Vitamin D Total (30-100) ng/ml Folate (>5.38) ng/ml TSH (0.300-4.500) uIu/ml SARS-CoV-2, RNA, NAAT (NEGATIVE) 12/08/22 12/08/22 12/08/22 Range/Units 11:13 10:50 10:50 WBC (4.8-10.8) K/ul RBC (4.70-6.10) M/uL Hgb (14.0-18.0) g/dl Hct (42.0-52.0) % MCV (80.0-100.0) fL MCH (25.0-34.0) pg MCHC (32.0-36.0) g/dL RDW Std Deviation (36.4-46.3) fL RDW Coeff of Rachelle (11.5-14.5) % Plt Count (130-400) K/uL MPV (9.4-12.4) fL Immature Gran % (Auto) % Neut % (Auto) % Lymph % (Auto) % [place] % (Auto) % Eos % (Auto) % Baso % (Auto) % Neut # (Auto) (1.40-6.50) K/uL Lymph # (Auto) (1.2-3.4) K/uL [place] # (Auto) (0.11-0.59) K/uL Eos # (Auto) (0-0.50) K/uL Baso # (Auto) (0-0.2) K/uL Immature Gran # (Auto) (0.01-0.20) K/uL Sodium (136-145) mmol/L Potassium (3.5-5.1) mmol/L Chloride (98-107) mmol/L Carbon Dioxide (21-32) mmol/L Anion Gap (3-11) BUN (6-23) mg/dl Creatinine (0.6-1.4) mg/dl Est Cr Clr Drug Dosing ml/min Est GFR ( Amer) ml/min Est GFR (Non-Af Amer) ml/min BUN/Creatinine Ratio (10-20) Glucose (70-99(Fasting)) mg/dl POC Glucose (70-99) mg/dl Estimat Average Glucose Hemoglobin A1c Calcium (8.5-10.1) mg/dl Magnesium Cancelled (1.7-2.4) mg/dl Iron (35-175) mcg/dl TIBC (250-450) mcg/dl Unsaturated IBC (155-355) mcg/dl Transferrin % Sat (20-50) % Ferritin (8-388) ng/ml Total Bilirubin (0.2-1.0) mg/dl AST (13-39) U/L ALT (7-52) U/L Alkaline Phosphatase (34-104) U/L Troponin I High Sens (0-20) pg/ml B-Natriuretic Peptide (0-100) pg/ml Total Protein (6.0-8.3) gm/dl Albumin (3.4-5.0) gm/dl Globulin (2.5-4.0) gm/dl Albumin/Globulin Ratio (0.9-2) Triglycerides (0-150) mg/dl Cholesterol (0-200) mg/dl LDL Cholesterol, Calc mg/dl VLDL Cholesterol, Calc (0-30) mg/dl HDL Cholesterol mg/dl Cholesterol/HDL Ratio (0-5) Lipase (11-82) U/L Vitamin B12 (180-914) pg/ml 25-OH Vitamin D Total (30-100) ng/ml Folate (>5.38) ng/ml TSH 3.157 (0.300-4.500) uIu/ml SARS-CoV-2, RNA, NAAT NEGATIVE (NEGATIVE) 12/08/22 12/08/22 Range/Units 10:50 10:50 WBC 7.75 (4.8-10.8) K/ul RBC 4.66 L (4.70-6.10) M/uL Hgb 14.1 (14.0-18.0) g/dl Hct 41.3 L (42.0-52.0) % MCV 88.6 (80.0-100.0) fL MCH 30.3 (25.0-34.0) pg MCHC 34.1 (32.0-36.0) g/dL RDW Std Deviation 46.5 H (36.4-46.3) fL RDW Coeff of Rachelle 14.4 (11.5-14.5) % Plt Count 260 (130-400) K/uL MPV 9.2 L (9.4-12.4) fL Immature Gran % (Auto) 0.1 % Neut % (Auto) 58.1 % Lymph % (Auto) 32.5 % [place] % (Auto) 8.1 % Eos % (Auto) 0.9 % Baso % (Auto) 0.3 % Neut # (Auto) 4.50 (1.40-6.50) K/uL Lymph # (Auto) 2.52 (1.2-3.4) K/uL [place] # (Auto) 0.63 H (0.11-0.59) K/uL Eos # (Auto) 0.07 (0-0.50) K/uL Baso # (Auto) 0.02 (0-0.2) K/uL Immature Gran # (Auto) 0.01 (0.01-0.20) K/uL Sodium 139 (136-145) mmol/L Potassium 3.6 (3.5-5.1) mmol/L Chloride 107 (98-107) mmol/L Carbon Dioxide 24 (21-32) mmol/L Anion Gap 8 (3-11) BUN 20 (6-23) mg/dl Creatinine 1.36 (0.6-1.4) mg/dl Est Cr Clr Drug Dosing 60.9 ml/min Est GFR ( Amer) 62.0 ml/min Est GFR (Non-Af Amer) 53.5 ml/min BUN/Creatinine Ratio 14.7 (10-20) Glucose 103 H (70-99(Fasting)) mg/dl POC Glucose (70-99) mg/dl Estimat Average Glucose Hemoglobin A1c Calcium 10.3 H (8.5-10.1) mg/dl Magnesium 1.9 (1.7-2.4) mg/dl Iron 92 (35-175) mcg/dl TIBC 365 (250-450) mcg/dl Unsaturated IBC 273 (155-355) mcg/dl Transferrin % Sat 25 (20-50) % Ferritin 111.0 (8-388) ng/ml Total Bilirubin 0.5 (0.2-1.0) mg/dl AST 30 (13-39) U/L ALT 21 (7-52) U/L Alkaline Phosphatase 51 (34-104) U/L Troponin I High Sens 372.2 H* (0-20) pg/ml B-Natriuretic Peptide (0-100) pg/ml Total Protein 8.2 (6.0-8.3) gm/dl Albumin 4.5 (3.4-5.0) gm/dl Globulin 3.7 (2.5-4.0) gm/dl Albumin/Globulin Ratio 1.2 (0.9-2) Triglycerides (0-150) mg/dl Cholesterol (0-200) mg/dl LDL Cholesterol, Calc mg/dl VLDL Cholesterol, Calc (0-30) mg/dl HDL Cholesterol mg/dl Cholesterol/HDL Ratio (0-5) Lipase 31 (11-82) U/L Vitamin B12 (180-914) pg/ml 25-OH Vitamin D Total (30-100) ng/ml Folate (>5.38) ng/ml TSH (0.300-4.500) uIu/ml SARS-CoV-2, RNA, NAAT (NEGATIVE) Diagnostic Findings Chest X-Ray 12/08/22 10:46 XR chest 1V portable CLINICAL HISTORY: Chest pain, nonspecific TECHNIQUE: Single frontal radiograph of the chest was obtained. Comparison: None available at the time of this dictation. FINDINGS: No lines and tubes are seen. Cardiomegaly is noted. Faint left lower lung airspace opacities are suggested. No evidence of pleural effusion or pneumothorax. IMPRESSION: Faint left lower lung airspace opacities are suggested which may represent atelectasis, aspiration, and/or pneumonia. If there is clinical concern, lateral radiograph or CT can be performed. ACT 112: Negative or not required by law. Electronically signed by: Juarez Corley M.D. 12/08/2022 11:05 AM Chest X-Ray 12/08/22 14:35 XR chest 1V not portable HISTORY: 67 years-old Male f/u atelectasis vs opacity/pna acute cough with shortness of breath COMPARISON: 12/08/2022 TECHNIQUE: Lateral view of the chest FINDINGS: Cardiac silhouette is mildly enlarged. No pneumothorax, pleural effusion, airspace consolidation or pulmonary edema identified. Degenerative changes of the shoulders and spine. IMPRESSION: No acute process. ACT 112: Negative or not required by law. The above report was generated using voice recognition software. It may contain grammatical, syntax or spelling errors. Electronically signed by: Tim Walls M.D. 12/08/2022 6:19 PM 12/08/22 ECHOCARDIOGRAM LV systolic function is normal. No regional wma. There is mild concentric LVH. EF 55-60%. There is mild to moderate mitral regurgitation. No prior study for comparison PG Care Time/CCT Total # of Minutes Spent Total Time Spent with Patient: Total time spent is greater than 50% in coordination of care (as documented) at patient's floor/unit and/or counseling patient: Coding Level of Care Code None Diagnoses Chest pain R07.9 SVT (supraventricular tachycardia) I47.1 Dyslipidemia E78.5 Hypertension I10 Prediabetes R73.03
[2022-12-09 08:14] LABS: Estimated Average Glucose 128 mg/dl; Hemoglobin A1C 6.1 % (4.5-5.6)
[2022-12-09] MEDS: ASPIRIN 81 MG ECTAB PO SCH (08:35)
[2022-12-09] MEDS: METOPROLOL TARTRATE 25 MG TAB PO SCH ×2 (08:35→20:26)
[2022-12-09] MEDS: lisinopril 10 MG TAB PO SCH (09:16)
[2022-12-09 09:17] LABS: Troponin I High Sensitivity 604.5 pg/ml (0-20)
[2022-12-09] MEDS ORDERED: SODIUM CHLORIDE 0.9% 1000ML 1,000 ML IV SCH ×2 (09:45→12:30)
[2022-12-09] MEDS ORDERED: fentaNYL citrate 100 MCG/2 ML VIAL ONE (10:09)
[2022-12-09] MEDS ORDERED: niCARdipine HCL INJ 2.5 MG/ML 10 ML AMP ONE (10:09)
[2022-12-09] MEDS ORDERED: MIDAZOLAM HCL 1 MG/ML 2ML VIAL ONE (10:09)
[2022-12-09] MEDS ORDERED: HEPARIN (PORCINE) 1000 UNIT/ML 10 ML (CATH LAB USE ONLY) ONE (10:09)
[2022-12-09] MEDS ORDERED: NITROGLYCERIN/D5W 100MCG/ML 20ML SYR ONE (10:10)
--- NOTE | 2022-12-09 10:11 | Electrocardiogram Report ---
Test Reason : Blood Pressure : / mmHG Vent. Rate : 075 BPM Atrial Rate : 075 BPM P-R Int : 228 ms QRS Dur : 100 ms QT Int : 384 ms P-R-T Axes : 091 184 140 degrees QTc Int : 428 ms Poor data quality, interpretation may be adversely affected Suspect arm lead reversal, interpretation assumes no reversal Sinus rhythm with 1st degree A-V block Right superior axis deviation Septal infarct (cited on or before 08-DEC-2022) Abnormal ECG When compared with ECG of 08-DEC-2022 10:42, Significant changes have occurred Confirmed by Rene Day ([id number]) on 12/09/2022 10:11:28 AM Referred By: REFERRED SELF Confirmed By:Rene Day
--- NOTE | 2022-12-09 10:16 | Electrocardiogram Report ---
Test Reason : Blood Pressure : / mmHG Vent. Rate : 070 BPM Atrial Rate : 070 BPM P-R Int : 232 ms QRS Dur : 090 ms QT Int : 406 ms P-R-T Axes : 024 -29 056 degrees QTc Int : 438 ms Poor data quality, interpretation may be adversely affected Sinus rhythm with 1st degree A-V block Septal infarct (cited on or before 08-DEC-2022) Abnormal ECG When compared with ECG of 08-DEC-2022 18:24, (unconfirmed) Questionable change in QRS axis Confirmed by Rene Day ([id number]) on 12/09/2022 10:15:56 AM Referred By: REFERRED SELF Confirmed By:Rene Day
--- NOTE | 2022-12-09 11:29 | Pre Anesthesia Assessment ---
Date of Service December 09, 2022 Pre Sedation Assessment Vital Signs Temp Pulse Pulse Resp BP BP Pulse Ox 12/09/22 07:34 98.6 F 59 L 19 148/90 H 97 12/09/22 06:21 64 12/09/22 04:12 68 19 121/82 94 12/09/22 00:16 69 12/08/22 23:00 66 18 126/88 95 12/08/22 20:00 99.0 F 89 18 144/100 H 99 12/08/22 18:31 80 152/89 H 12/08/22 16:26 69 12/08/22 17:43 148/101 H 12/08/22 16:07 77 146/111 H 12/08/22 14:40 98.1 F 68 19 161/97 H 97 12/08/22 12:24 72 12/08/22 11:57 70 18 146/102 H 97 O2 Del Method 12/09/22 07:34 Room Air 12/09/22 06:21 12/09/22 04:12 Room Air 12/09/22 00:16 12/08/22 23:00 Room Air 12/08/22 20:00 Room Air 12/08/22 18:31 12/08/22 16:26 12/08/22 17:43 12/08/22 16:07 12/08/22 14:40 Room Air 12/08/22 12:24 12/08/22 11:57 Room Air Cardiovascular RRR, no murmur, no edema Respiratory normal respiratory effort, lungs clear to auscultation Pre-Sedation Airway Assessment Smoking Status: Never smoker Hx Sleep Apnea: No Hx Difficult Intubation: No Short, Thick Neck: No Thyromental Distance: > or= 3.5 Finger Breadths Oral Cavity: + WNL Mallampati Class: III ASA: ASA3 NPO Status Date of Last Intake of Fluids: 12/08/22 Date of Last Intake of Solid Food: 12/08/22 Procedure Planning Contraindications for Sedation: none Current Medications Reviewed: Yes Notes The planned sedation has been discussed with the patient. Informed Consent was obtained. I have identified the patient, determined the appropriateness of sedation and have assessed the patient immediately prior to the procedure. All medicine(s) and interventions are by my order.
--- NOTE | 2022-12-09 11:35 | Cardiology Progress Note ---
Date of Service December 09, 2022 Assessment & Plan (1) SVT (supraventricular tachycardia): Plan: -case discussed with Dr. Sierra. -SVT likely related to either a bypass track or an atypical AV node reentrant tachycardia. -consider increasing metoprolol tartrate. -may be a candidate for a radiofrequency ablation. Will discuss with Dr. Cervantes. (2) Elevated troponin: Plan: -in the face of classic angina pectoris symptoms. -will proceed with a cardiac catheterization today. (3) Hypertension: Plan: -as above, may be reasonable to increase metoprolol tartrate. Admission and Anticipated Discharge Date Admission Date: December 08, 2022 Subjective The patient is resting comfortably in bed without complaints of chest pain, dyspnea, palpitations. Discussed need for a cardiac catheterization. He may be a candidate for radiofrequency ablation later this week. Physical Exam Physical Exam: In general is well-developed well-nourished white male in no acute distress. HEENT exam is negative. Neck is supple with full carotid upstrokes. There are no carotid bruits. Jugular is pressure is flat 90. There is no thyromegaly. Cardiovascular exam reveals a regular rhythm with distant heart sounds. No obvious murmurs. Lungs are clear without rales, rhonchi, wheezes. Abdomen is soft without bruits. Extremities reveal intact radial artery pulses bilaterally. There is no peripheral edema. Results & Data ([facility]) Vital Signs (Past 12 Hours) Vital Signs Temp Pulse Pulse Resp BP Pulse Ox O2 Del Method 12/09/22 07:34 37.0 C 59 L 19 148/90 H 97 Room Air 12/09/22 06:21 64 12/09/22 04:12 68 19 121/82 94 Room Air 12/09/22 00:16 69 Laboratory Results High sensitivity troponin peaked at 863.8 and is now down to 604.5 Diagnostic Findings ekg monitor tech benign overnight. PG Care Time/CCT Total # of Minutes Spent Total Time Spent with Patient: Total time spent is greater than 50% in coordination of care (as documented) at patient's floor/unit and/or counseling patient: Coding Level of Care Code 31384 SUB INP/OBS CARE 3/50MIN Diagnoses SVT (supraventricular tachycardia) I47.1 Elevated troponin R77.8 Hypertension I10
--- NOTE | 2022-12-09 12:09 | Post Anesthesia Assessment ---
Date of Service December 09, 2022 Post Sedation Assessment Vital Signs Temp Pulse Pulse Resp BP BP Pulse Ox 12/09/22 12:07 65 16 132/84 95 12/09/22 07:34 98.6 F 59 L 19 148/90 H 97 12/09/22 06:21 64 12/09/22 04:12 68 19 121/82 94 12/09/22 00:16 69 12/08/22 23:00 66 18 126/88 95 12/08/22 20:00 99.0 F 89 18 144/100 H 99 12/08/22 18:31 80 152/89 H 12/08/22 16:26 69 12/08/22 17:43 148/101 H 12/08/22 16:07 77 146/111 H 12/08/22 14:40 98.1 F 68 19 161/97 H 97 12/08/22 12:24 72 O2 Del Method 12/09/22 12:07 Room Air 12/09/22 07:34 Room Air 12/09/22 06:21 12/09/22 04:12 Room Air 12/09/22 00:16 12/08/22 23:00 Room Air 12/08/22 20:00 Room Air 12/08/22 18:31 12/08/22 16:26 12/08/22 17:43 12/08/22 16:07 12/08/22 14:40 Room Air 12/08/22 12:24 Recovery Score Activity: Moves 4 extremities Respiration: Deep Breath/Cough Circulation: +/-20% PreAnes Value Consciousness: Fully Awake Oxygen Saturation: O2 needed for >90% Discharge Sedation Level of Care: Fast Track Phase II Post Sedation Plan On clinical assessment, the patient appears to have tolerated the sedation without complications. Patient is recovering as anticipated. Patient will continue to be monitored by nursing and may be discharged when sedation discharge criteria are met per below protocol. Upon Completions of procedure up to 15 minutes continue every 5 minute vital signs and the P.A.R. score; then discharge to a Phase I or Fast Track to Phase II per the following guidelines: * Discharge Patient to appropriate Phase II area if PAR is 8 or greater or return to pre- procedure baseline. The post - procedure orders will be as directed. * If PAR score is less than 8 or not return to pre-procedure baseline then patient will follow Phase I monitoring till PAR is reached for Phase II. The Phase I may be done in procedure room or may call to secure a Phase I area. * If naloxone or flumazenil are used for reversal, hold in Phase I for continued monitoring from when last reversal dose was given for a minimum of 60 minutes or longer pending the nurse and/or physician discretion of patient condition before discharge to Phase II. Please call the Sedation Physician to re-evaluate and complete post-note for discharge to Phase II area. Do NOT discharge from procedure sedation or Phase 1 until post- sedation evaluation note is complete by procedure /sedation MD Sedation Discharge Instructions to be given to the patient at discharge to home.
--- NOTE | 2022-12-09 12:26 | Cardiac Catheterization ---
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 Cardiac Status Clinical evaluation leading to the procedure CAD Presenation: Non STEMI Diagnostic Physicians Name: Moises Desai MD Closure Device Recommendations: CABG Cardiac Cath Procedure Full Procedure Date December 09, 2022 Pre-Procedure Diagnosis Pre-Procedure Diagnosis: Non STEMI AUC Score AUC Score: 8 Post-Procedure Diagnosis Post-Procedure Diagnosis: Severe CAD and Normal Intracardiac Pressures Procedure(s) Performed Procedure(s) Performed: Coronary Angiography and Left Heart Cath Credit Risk Modeler Moises Desai MD Utility Inspector(s) [place] Estimated Blood Loss Estimated Blood Loss: 5 Medication(s) Medication(s): Fentanyl, Heparin, Lidocaine 1%, Nicardipine, Nitroglycerin and Versed Summary of Findings Indication: NSTEMI Access: 6 Fr right radial artery Catheters: [place] Findings: LM -normal caliber, no significant disease LAD -medium caliber, 70 to 80% earlymid stenosis after takeoff of D1. Remainder of vessel without significant disease and extends to apex. Medium D1 with diffuse proximal to mid disease up to 90% in mid segment Ramus50 to 60% ostial stenosis remainder of vessel without significant disease Circumflex -medium caliber, mid 100% chronic total occlusion. OM's/left PLB partially fill retrograde via left to left collaterals. RCA -dominant, diffuse proximal to mid disease up to 50%. 100% chronic total occlusion just after takeoff of acute marginal. Right PDA/PLB's fill retrograde via [id number] collaterals. LVEDP -8 Arterial Closure: TR band Summary: 1. Severe multivessel coronary artery disease - 70-80% earlymid LAD stenosis. 90% medium caliber D1 100% mid RCA chronic total occlusion. PDA/PLB's fill via [id number] collaterals 100% mid circumflex chronic total occlusion. OM's/PLB fills partially via left to left collaterals 50 to 60% ostial ramus 2. Normal intracardiac filling pressure Recommendations: Cardiac surgery evaluation for CABG Hemodynamics Rest Ao:: 115/79/96 Final Ao: 117/69/87 LV: 103/8 Recommendations Recommendations: CABG Specimens Specimens: None Radiation Exposure (mGy) 936 Contrast (mls) 50 Anesthesia Moderate 0427-2320 Procedural Complication(s) None Disposition PCU I attest to the content of the Intraoperative Record and any orders documented therein. Any exceptions are noted below. [facility] Card Cath Procedure Codes Cardiac Catheterization Procedure 1: Cardiovascular Cath Procedures: 41915 Coronaries and LHC (+/-LV) Moderate Sedation Procedure 1: Sedation/Anesthesia: 48407 Mod Sedation by the same physician;Init15 Min Child Age 5 & Up PG Care Time/CCT Total # of Minutes Spent Total Time Spent with Patient: Total time spent is greater than 50% in coordination of care (as documented) at patient's floor/unit and/or counseling patient:
[2022-12-09] MEDS ORDERED: Heparin IV Adult Wt-Based Standard *NO* Bolus Protocol IV SCH (12:45)
[2022-12-09] MEDS: HEPARIN SODIUM/DEXTROSE 25,000 UNITS/500 ML BAG IV SCH (13:35)
[2022-12-09 14:11] LABS: Partial Thromboplastin Ratio 1.5; Partial Thromboplastin Time 40.7 Seconds (21.0-31.0)
--- NOTE | 2022-12-09 15:09 | Discharge Summary ---
Date of Service December 09, 2022 Admission HPI Per Admitting Provider 67yo male with PMHx HTn, HLD, pre-DM presented with chest tightness and radiation to b/l jaw with shortness of breath and heart racing sensation since this past Thursday, about 4-5 times a day (if not possibly more). Prior home meds atorvastatin 20mg, lisinopril 40mg, metoprolol tartrate 25mg BID but do not see any recent fill history. Reportedly not seen primary care almost 5 years. Patient reports since about last Thursday he has been having at least 4-5 episodes daily of racing sensation in his chest with chest pain radiation to jaws and associated lightheaded/dizziness sensation which lasts a couple of seconds and then goes away. Nothing brought it on or made worse/better. Had been checking BP/pulse w/ home machine and reports HRs up to 150-160s at times. No recent illness/cough/sputum production or fevers at home. He reports he used to be on medication for blood pressure but just hasn't been to primary care. Good experience w/ Dr Ross in the past and would like to f/u with her at d/c. Father from brain aneurysm/stroke in his 60/70s, mother in her 90s. No abdominal pain, nausea or vomiting. No lower back pain. Does have some edema in LE but calves non-tender to palpation. No pleuritic pain reported. 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 No drinking history. In ER found to be in SVT w/ rates in 150bpm, spontaneously converted and was given metoprolol 5mg IV x 1. ST/T wave abn, consider inferior ischemia. CXR w/ faint left lower lung airspace opacities are suggested which may represent atelectasis, aspiration, and/or pneumonia. WBC, no left shift. COVID 19 testing negative. Na/K within normal limits. Calcium 10.3. Troponin elevated to 372.2 and will trend. NOT currently having any chest discomfort. Principal Diagnosis Severe CAD, NSTEMI, SVT Discharge Exam Constitutional WD/WN, vitals as above Respiratory normal respiratory effort, lungs clear to auscultation Cardiovascular RRR, no murmur, no edema Gastrointestinal (Abdomen) normal bowel sounds, soft, nontender, no hepatosplenomegaly Musculoskeletal no cyanosis or clubbing, extremities motor strength 5/5 Skin no rashes, warm and dry Neurologic PERRL, EOMI, accommodation nl, no face palsy, no dysarthria Psychiatric A+Ox3, euthymic affect Discharge Data Allergies Allergy/AdvReac Type Severity Reaction Status Date / Time No Known Allergies Allergy Unverified 07/28/19 09:04 Consultations 12/08/22 12:28 ED Decision to Admit Stat 12/08/22 14:35 Consult Cardiology Routine Procedures Performed Operation Date: 12/09/22 11:00 Actual Procedures p Cineradiography w/Routine Exam - Pelon Desai MD p Cath, Left with Cors and Vent - Pelon Desai MD Ordered Studies 12/09/22 11:13 CL Cath Imgs for PACS use only Routine ECHO Hospital Course (1) NSTEMI (non-ST elevated myocardial infarction): Presented w/ recurrent episodes of CP/radiation to jaw/heart racing/SOB since last Thursday, 4-5x daily. Found to be in SVT in ER with rates 150s, spontaneously broke to NSR and 1st degree AVB, rates in the 70s Troponin peaked at 863, with some inferior TWIs and lateral ST depressions on ECG while tachycardic ECHO w/ normal LV systolic function. No regional wma. Mild concentric LVH. EF 55-60% Went for cardiac cath and showed: 1. Severe multivessel coronary artery disease - 70-80% earlymid LAD stenosis. 90% medium caliber D1 100% mid RCA chronic total occlusion. PDA/PLB's fill via [id number] collaterals 100% mid circumflex chronic total occlusion. OM's/PLB fills partially via left to left collaterals 50 to 60% ostial ramus 2. 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 -defer to tertiary care as transferring for CABG eval -started metoprolol 25mg BID -monitor on tele (4) Dyslipidemia: lipid panel as above start high intensity Lipitor 40mg daily (5) Hypertension: BPs now better controlled with starting metoprolol and lisinopril-titrate up as able to (6) Prediabetes: HbA1c 6.1 % Counseled patient/weight loss/dietary changes follow as outpt consider SGLT-2 Plan DVT porph-heparin gtt Dispo-transfer to tertiary care for CABG eval Discussed care wit Cardiology, patient and his at bedside Total Time Total Time Spent Total Time Spent (In Minutes): 40 min Discharge Plan Discharge Items Patient Disposition: Transfer Acute Care Hospital Reason For Visit: TIGHTNESS IN CHEST, HEADACHE Discharge Diagnosis: SVT, Severe CAD, NSTEMI Activity: As commented below Lifting: None Exercise/Sports: Rest today Non-emergency contact: Primary Care Provider and Screening Specialist Call non-emergency contact if: you have any medication questions and your symptoms worsen Follow-up/Referrals: Lili Ross DO [Primary Care Provider] - Diet: Heart Healthy Addtl Attending Provider Instructions: Transferred to [facility] in [place] Pending Studies at Discharge: No Stand-Alone Forms: My [facility] Skilled Items Patient informed of condition?: Yes DNR: No Discharge Level of Care: Other Communicable Disease: No Discharge Prognosis: Stable Lines: Peripheral IV Urinary Catheter: No Medications and DC Order Prescriptions: New aspirin 81 mg Tablet,Delayed Release (Dr/Ec) 81 mg PO QAM Qty: 30 0RF metoprolol tartrate 25 mg Tablet 25 mg PO BID Qty: 60 0RF lisinopril 10 mg Tablet 10 mg PO QAM Qty: 30 0RF atorvastatin 40 mg Tablet 40 mg PO QAM Qty: 30 0RF Krames/Other Patient Handouts: Prediabetes, 5 Steps for Eating Healthier Admission Data Admit Date/Time: 12/08/22 12:32 Attending Provider: Julia Jensen Admit Provider: Lavell Montemayor Primary Care Provider: Lili Ross Other Providers: Lavell Montemayor ; Moises Cervantes Coding Level of Care Code 77281 INP/OBS DISCH >30 MIN Diagnoses NSTEMI (non-ST elevated myocardial infarction) I21.4 CAD (coronary artery disease), teller coronary artery I25.10 SVT (supraventricular tachycardia) I47.1 Dyslipidemia E78.5 Hypertension I10 Prediabetes R73.03
[2022-12-09 20:50] LABS: Partial Thromboplastin Ratio 1.6; Partial Thromboplastin Time 43.4 Seconds (21.0-31.0)
[2022-12-10 02:50] LABS: Hematocrit (blood only) 41.4 % (42.0-52.0); Hemoglobin 14.3 g/dl (14.0-18.0); Mean Corpuscular Hemoglobin 30.2 pg (25.0-34.0); Mean Corpuscular Hgb Conc 34.5 g/dL (32.0-36.0); Mean Corpuscular Volume 87.5 fL (80.0-100.0); Mean Platelet Volume 8.6 fL (9.4-12.4); Platelet Count 228 K/uL (130-400); RDW Coefficient of Variation 14.4 % (11.5-14.5); RDW Standard Deviation 46.5 fL (36.4-46.3); Red Blood Count 4.73 M/uL (4.70-6.10); White Blood Count 8.41 K/ul (4.8-10.8)
[2022-12-10 03:15] LABS: BUN Creatinine Ratio 18.1 (10-20); Calcium 9.3 mg/dl (8.5-10.1); Creatinine Clr Calc Pharmacy 52.1 ml/min; Est GFR (African American) 52.9 ml/min; Est GFR (Non-African American) 45.6 ml/min; Potassium 3.8 mmol/L (3.5-5.1)
[2022-12-10 03:21] LABS: Partial Thromboplastin Ratio 2.1
[2022-12-10 03:38] LABS: Partial Thromboplastin Time 58.2 Seconds (21.0-31.0)
[2022-12-10] MEDS: HEPARIN SODIUM/DEXTROSE 25,000 UNITS/500 ML BAG IV SCH (07:26)
[2022-12-10] MEDS: ASPIRIN 81 MG ECTAB PO SCH (07:33)
[2022-12-10] MEDS: METOPROLOL TARTRATE 25 MG TAB PO SCH (07:33)
[2022-12-10] MEDS: lisinopril 10 MG TAB PO SCH (07:34)
[2022-12-10] MEDS ORDERED: ATORVASTATIN 40 MG TAB PO SCH (09:00)
== END 2022-12-10 08:40 | disposition short-term general hospital (02) ==
LOC: ED 10:34 → 2E 10:34 → SUATTDRO 12:32 → 2E 14:23